=== PATIENT | female | born 1960 | race Caucasian/White ===

== ENCOUNTER 2017-01-09 18:15 | Inpatient (IN) | payer OTHER ==
[~2017-01-09] VITALS: Ht 172.7 cm; Wt 78.1 kg
[2017-01-13] MEDS ORDERED: MARYS PO (15:26)
[2017-01-13] MEDS ORDERED: PROAIR RESPICL90 MCG IH (15:27)
[2017-01-13] MEDS ORDERED: BREO ELLIP1 PUFF/DOS IH (15:27)
[2017-01-13] MEDS ORDERED: DIFLUCAN DPS100 MG PO (15:28)
[2017-01-13] MEDS ORDERED: FAMOTIDINE10 MG PO (15:28)
[2017-01-13] MEDS ORDERED: PRILOSEC DPS20 MG PO (15:29)
[2017-01-13] MEDS ORDERED: XANAX DPS0.25 MG PO (15:29)
[2017-01-13] MEDS ORDERED: OXY IR DPS5 MG PO (15:29)
[2017-01-13] MEDS ORDERED: COMPAZINE10 MG PO (15:30)
[2017-01-13] MEDS ORDERED: KLOR-CON M2020 ME1 PO (15:31)
[2017-01-13] MEDS ORDERED: POLYETHYLENE GL17 GM PO (15:31)
[2017-01-13] MEDS ORDERED: CLINDAMYCIN PHO60 GM TP (15:31)
[2017-01-13] MEDS ORDERED: HYTONE 1% DPS30 GM TP (15:32)
[2017-01-13] MEDS ORDERED: COLACE-DPS100 MG PO (15:32)
[2017-01-13] MEDS ORDERED: MAALOX DPS30 ML PO (15:32)
[2017-01-13] MEDS ORDERED: PREPARATION H O60 GM TP (15:33)
[2017-01-13] MEDS ORDERED: TYLENOL DPS325 MG PO (15:33)
--- NOTE | 2017-01-21 10:17 | ER ---
ADMIT: 01/09/2017 RM/LOC: 428 [facility] MR#: [id number] [address] [facility] [address] [place], [place] [address] ANKIT HERNANDEZ [address] [place] [address] Emergency Room Report SEX: F AGE: 56 : 1960 DATE: 01/09/2017 ADDENDUM: CHIEF COMPLAINT: Fever. HISTORY OF PRESENT ILLNESS: This is a 56-year-old female, who has known colon cancer with metastasis to the liver. She has been doing well until she has been having a hard time having a bowel movement the last few days. Today, she developed a fever. She aches all over. She has a slight cough. A sepsis protocol and influenza were ordered. Influenza test is negative. Her CBC shows a white count of 0.9, platelets of 64, and hemoglobin is 12.4. Urinalysis is negative. Her INR is 1.11. Her PT is 11.6. Lactic acid is 3.4. Blood cultures have been drawn. Chest x-ray is negative for any acute disease. CMP is normal except for potassium at 3.4, glucose 102, total protein is 5.1, albumin 2.5, alkaline phosphatase 144, magnesium low at 1.7, CK low at 25. Cardiac enzymes otherwise normal. Procalcitonin is 0.09. Dr. Gomez was called, he is admitting the patient for [facility]. Dr. Salvador also contacted, noticed the patient is being hospitalized. CLINICAL IMPRESSION: Neutropenic fever. Zosyn was ordered by myself. Vanco was ordered by Dr. Gomez and will be given down here in the emergency room also. Fluids, she is on her second L at this time. She has not been hypotensive throughout her ER visit. ANTHONY Kohler / Noam Samaniego MD / modl JOB #: [id number] CC: Cisco Gomez MD, Attending Physician Nash Carnes MD, Family Physician
--- NOTE | 2017-01-31 07:52 | CO ---
ADMIT: 01/09/2017 RM/LOC: 428 [facility] MR#: [id number] 2620 [facility] [address] [place] [phone] ANKIT HERNANDEZ [address] [place] [address] Consultation SEX: F AGE: 56 : 1960 DATE OF CONSULTATION: 01/10/2017 ATTENDING PHYSICIAN: Cisco Gomez MD CONSULTING PHYSICIAN: Alex Salvador MD REASON FOR CONSULTATION: Neutropenic fever. HISTORY OF PRESENT ILLNESS: The patient is a 56-year-old female who has metastatic colon cancer and is currently receiving 5-FU oxaliplatin and Vectibix. Her last chemotherapy would have been given about 10 days ago with Neulasta given last Friday. She presents to the emergency room last night with a fever of 104 in the setting of a white blood cell count of 0.9 and a neutrophil count of 0.3. She has had blood cultures drawn which so far negative. She has been placed on cefepime and vancomycin. She has no localizing symptoms to suggest the source of her fever. She does feel quite a bit better at the time of my examination this morning. She has had resolution of her fever since being admitted last night. She had this ongoing rash as expected from her Vectibix. She denies any focal areas of pain. She has noted new urinary symptoms of concern. The rest of her review of systems is negative. PAST MEDICAL HISTORY: Metastatic colon cancer, asthma. PAST SURGICAL HISTORY: Prior tonsillectomy. ALLERGIES: ALLERGIES TO MEDICATIONS ARE REVIEWED IN THE CHART. SOCIAL HISTORY: The patient lives in [place]. She has a supportive family. She has a strong smoking history. FAMILY HISTORY: She is not aware of any recurrent malignancies in the family. REVIEW OF SYSTEMS: See HPI. Otherwise, a complete review of systems was obtained and was negative. PHYSICAL EXAMINATION: VITAL SIGNS: Temperature 99, pulse 94, respirations 20, blood pressure 98/65. GENERAL: She is in no acute distress and provides me good history. She is alert and oriented. HEENT: Mucous membranes are moist. No oral lesions are seen. Extraocular muscles were intact. Pupils are reactive and symmetrical. NECK: Without adenopathy or JVD. HEART: Regular rate and rhythm without murmur. LUNGS: Clear to auscultation bilaterally without any crackles or wheezes. ABDOMEN: Soft, nontender, and nondistended. Positive bowel sounds throughout. No organomegaly is appreciated. EXTREMITIES: No edema, rashes, lesions, or adenopathy is appreciated. ADMIT: 01/09/2017 RM/LOC: 428 [facility] MR#: [id number] [address] [id number] [place] [address] Consultation SEX: F AGE: 56 : 1960 LABORATORY DATA: See HPI. IMPRESSION: 1. Neutropenic fever in the setting of chemotherapy. 2. Metastatic colon cancer. RECOMMENDATIONS: I agree with her current antibiotic management. She did receive Neulasta, and therefore, I would expect her white blood cell count to start rising fairly quickly over the next couple of days. I doubt that giving any additional Neupogen would help at this point. We did talk about a number of issues related to her cancer today and also about our plan for her next cycle of treatment. I think we will hold off on starting her next cycle, which would be due Friday. She does have a plan to go to [place] for a second opinion sometime in the next few weeks as well. I might just give her Vectibix alone before that trip. I will follow her during this admission and appreciate being involved in her care. Alex Salvador MD/ garrison JOB #: [id number] CC: Cisco Gomez MD, Attending Physician Nash Carnes MD, Family Physician
--- NOTE | 2017-02-23 15:58 | HP ---
ADMIT: 01/09/2017 RM/LOC: 428 [facility] MR#: [id number] 2620 [facility] [address] [place] [id number] WINNIE HERNANDEZ [address] [place] [address] History and Physical SEX: F AGE: 56 : 1960 DATE OF SERVICE: CHIEF COMPLAINT: Body aches, fever. HISTORY OF PRESENT ILLNESS: Winnie is a 56-year-old female with a history of stage IV colon cancer with metastasis to the liver and asthma, who presented to the ER with 1-day history of body aches and fever. She was found to be febrile to 104.7 degrees Fahrenheit upon presentation and tachycardic in the 120s. She reports she has had abdominal pain and constipation for the last three or four days for which she was seen at another ER and given an enema and suppositories. She reports that mostly resolved, though she developed severe rectal pain and little a bit of blood on the toilet paper when wiping. She denies any blood in her bowel movements or black tarry stools, just small volume of blood on the toilet paper. She reports today she developed a fever and diffuse body aches. She also appreciates an intermittent cough with some white sputum production. She denies any shortness of breath or increased work of breathing, chest pain, new skin lesions, oral mucosal sores, nausea, vomiting, edema, presyncope, or syncope. She last received chemo one week ago and is currently neutropenic with a white blood cell count of 0.9. She endorses one sick contact, as her daughter does have bronchitis, but has been on antibiotics for the past 10 days. PAST MEDICAL HISTORY: Stage IV colon cancer with metastases to the liver, asthma, and prolapsed mitral valve. PAST SURGICAL HISTORY: Port in her left chest, tonsils, and kidney. MEDICATIONS: 1. Magic mouthwash 2 teaspoons q.4 hours swish and swallow. 2. Ibuprofen 400 mg p.o. p.r.n. pain. 3. Ventolin 2 puffs inhaled p.r.n. shortness of breath. 4. Breo one puff inhaled daily. 5. Fluconazole 100 mg p.o. daily. 6. Famotidine 10 mg one tab p.o. daily alternated with omeprazole of unknown strength. 7. Oxycodone 5 mg one tab PO, q.6 hours p.r.n. pain. 8. Alprazolam 0.25 mg one tab p.o. q.8 hours p.r.n. anxiety. 9. Prochlorperazine 10 mg one tab p.o. q.4 to 6 hours p.r.n. nausea and vomiting. 10.Clindamycin gel 1% topical q.12 hours p.r.n. perioral dermatitis. 11.MiraLax one capsule p.o. daily p.r.n. constipation. ALLERGIES: SULFA. SOCIAL HISTORY: The patient lives in [place]. Her daughter is with her at bedside. She is 1 pack per day smoker and denies any alcohol use. FAMILY HISTORY: She reports her father is very healthy with his only known medical problems being reflux and her mother has hypertension. Her ADMIT: 01/09/2017 RM/LOC: 428 [facility] MR#: [id number] [address] [address] WINNIE HERNANDEZ [facility] [address] [place] [address] History and Physical SEX: F AGE: 56 : 1960 grandfather had colon cancer. REVIEW OF SYSTEMS: A 10-point review of systems was completed and negative except as noted in the HPI. PHYSICAL EXAMINATION: VITAL SIGNS: 131/79, 120, 26, 100% on room air and 104.7 Fahrenheit. GENERAL: Awake, alert, oriented, appears uncomfortable, very pleasant. HEENT: Head is normocephalic and atraumatic. Pupils are equal, round, and reactive to light. Sclerae are nonicteric. Oral mucosal with multiple small ulcers, perioral dermatitis present. NECK: Supple. Trachea midline. Thyroid not palpable. No appreciable cervical lymphadenopathy. HEART: Tachycardic with regular rhythm. LUNGS: Clear to auscultation throughout with normal work of breathing on room air. ABDOMEN: Soft, nontender to palpation. Bowel sounds are present. EXTREMITIES: Without cyanosis, clubbing, or edema. SKIN: Diffuse hyperpigmented lesions or scars on bilateral lower extremities. Port in place in left chest with no tenderness to palpation. No redness. NEURO: Cranial II through XII intact. The patient is moving all 4 extremities purposefully. PSYCH: Normal mood and affect. OBJECTIVE DATA: White blood cell count 0.9, differential pending, hemoglobin 12.4, and platelets 64. Creatinine 0.7, albumin 2.5, procalcitonin 0.09, lactic acid 3.4. Influenza is negative. Blood cultures collected. Urinalysis normal. CK-MB and troponin are normal. Chest x-ray without infiltrate or effusion. ASSESSMENT: 1. Neutropenic fever. 2. Stage IV colon cancer with known metastases to the liver. 3. Rectal pain possibly secondary to fissure versus mucositis. 4. Moderate protein-calorie malnutrition. 5. Perioral dermatitis secondary to chemotherapy. 6. Constipation. 7. Lactic acidosis. ADMIT: 01/09/2017 RM/LOC: 428 [facility] MR#: [id number] [address] [address] WINNIE HERNANDEZ [address] [place] [address] History and Physical SEX: F AGE: 56 : 1960 8. Asthma. 9. Mucocutaneous ulcers secondary chemotherapy. PLAN: The patient was given Zosyn in the ER, but we will expand empiric coverage to cefepime as well as giving a dose of vancomycin. Cultures were collected and are pending at this time. We will bolus the patient with IV fluids in response to lactic acidosis and tachycardia. We will continue MiraLax daily for constipation and add additional therapies as indicated. At this time, there is no clear source of infection, though the patient is, despite neutropenia, producing sputum with her cough. She also has multiple mucocutaneous ulcerations. Oncology was notified of the patient's admission. We will otherwise continue home medications per typical routine. Valencia Goldberg MD Resident / Cisco Gomez MD / garrison JOB #: [id number] CC: Cisco Gomez, Attending Physician Nash Carnes, Family Physician
--- NOTE | 2017-02-23 15:58 | DS ---
ADMIT: 01/09/2017 RM/LOC: 428 [facility] MR#: [id number] 2620 [facility] [address] [place] [id number] WINNIE HERNANDEZ [address] [place] [address] General Discharge Summary SEX: F AGE: 56 : 1960 ADMISSION DATE: 01/09/2017 DISCHARGE DATE: 01/12/2017 ADMISSION DIAGNOSIS: Neutropenic fever. DISCHARGE DIAGNOSIS: Neutropenic fever. SECONDARY DIAGNOSES: 1. Stage IV colon cancer with metastases to the liver. 2. Asthma. 3. Prolapsed mitral valve. 4. Rectal pain. 5. Moderate protein-calorie malnutrition. 6. Perioral dermatitis secondary to Vectibix chemotherapy. 7. Hypokalemia. 8. Hypomagnesemia. CONSULTATIONS DURING HOSPITALIZATION: Oncology. PROCEDURES: None. HISTORY OF PRESENT ILLNESS: Winnie presented to the ER with a 24-hour history of body aches and fever. She was found to be febrile to 104.7, and tachycardic in the 120s upon presentation. She denied any localizing symptoms of infection except for abdominal pain and constipation that she had for the last 3 or 4 days. She reported that she had presented to an outside emergency room where she received enemas and suppositories a few days prior, which slightly improved these symptoms. She also reported a mild cough. HOSPITAL COURSE: The patient was initially given Zosyn in the emergency room and broadened to vancomycin and cefepime for empiric antibiotics. Her initial white blood cell count 0.9 with 0.3 neutrophils, hemoglobin 12.4, and platelets 64. Of note, she also had a lactic acid of 3.4, procalcitonin of 0.09, and albumin of 2.5. The patient received fluids and antibiotics and the following morning, she reported that she felt significantly better. Her fever curve improved each day with a T-max on day #2 of 100.8, and she was afebrile from that point forward. She did receive Neulasta with her most recent round of chemotherapy so her counts recovered quickly while she was inpatient. Source of infection was thought was unknown. Blood and urine cultures were both no growth as well as C. diff and influenza which were negative. On hospital day #3, the patient was deemed to be stable to discharge to home. Her white blood cell count was 4.3, with an ANC of 2.8. DISCHARGE MEDICATIONS: 1. Diflucan 100 mg p.o. daily. 2. Klor-Con 20 mEq p.o. b.i.d. 3. Medrol taper 4 mg, remaining on the 12 of January. 4. MiraLax 17 g p.o. daily. 5. Breo 100/25, two puffs inhaled b.i.d. ADMIT: 01/09/2017 RM/LOC: 428 [facility] MR#: [id number] [address] [address] [facility] [place] [address] General Discharge Summary SEX: F AGE: 56 : 1960 6. Colace 100 mg p.o. b.i.d. p.r.n. constipation. 7. Compazine 10 mg p.o. q.4 hours p.r.n. nausea. 8. Maalox 30 mL p.o. q.6 hours p.r.n. indigestion. 9. Magic mouthwash p.o. q.4 hours p.r.n. 10.OxyIR 5 mg p.o. q.8 hours p.r.n. pain. 11.Pepcid 10 mg p.o. daily p.r.n. indigestion. 12.Omeprazole 20 mg p.o. daily p.r.n. indigestion. 13.Tylenol 650 mg p.o. q.4 hours p.r.n. pain. 14.Xanax 0.25 mg p.o. q.8 hours p.r.n. anxiety. 15.Ventolin 1 puff inhaled every 4 hours as needed for shortness of breath. 16.Cleocin gel apply to face every 12 hours as needed. 17.Hydrocortisone cream apply topically to hemorrhoids twice a day as needed. 18.Preparation H ointment apply to hemorrhoids t.i.d. p.r.n. DISPOSITION.: To home. CONDITION ON DISCHARGE: Stable. FOLLOWUP: On 01/13/2017, with Dr. Salvador at his clinic in [place]. Valencia Goldberg MD Resident / Cisco Gomez MD / modl JOB #: [id number] CC: Cisco Gomez MD, Attending Physician Nash Carnes MD, Family Physician
== END 2017-01-12 12:35 | disposition home or self-care (01) | DRG 809 ==
LOC: ER 18:15 → 4PCU 20:05
PROVIDERS: ADMIT Family Medicine
DX: D70.9 Neutropenia, unspecified (principal); C78.7 Secondary malignant neoplasm of liver and intrahepatic bile duct; E87.2 Acidosis; E44.0 Moderate protein-calorie malnutrition; E83.42 Hypomagnesemia; K12.1 Other forms of stomatitis; R50.81 Fever presenting with conditions classified elsewhere; J45.909 Unspecified asthma, uncomplicated; E87.6 Hypokalemia; K59.00 Constipation, unspecified; I34.1 Nonrheumatic mitral (valve) prolapse; F17.210 Nicotine dependence, cigarettes, uncomplicated; T45.1X5A Adverse effect of antineoplastic and immunosuppressive drugs, initial encounter; Z85.038 Personal history of other malignant neoplasm of large intestine